=== PATIENT | male | born 1955 | race African-American/Black ===

== ENCOUNTER 2019-07-28 13:03 | Emergency (ER) | payer OTHER ==
[~2019-07-28] VITALS: Ht 185.4 cm; Wt 84.1 kg
[~2019-07-28 13:03] MED LIST: ALBU17AE27 IH; FLUT1DIS3 IH; HYDROCHLOROTHIAZIDE; NAPR375T PO
[2019-07-28] MEDS ORDERED: IPRAHFA IH (13:29)
[2019-07-28] MEDS ORDERED: HYDR25TA PO (13:29)
[2019-07-28] MEDS ORDERED: DEXAMETHASONE 4 MG TABLET PO ONE (15:00)
[2019-07-28] MEDS ORDERED: ALBUTEROL SULFATE HFA 90 MCG/PUFF 8 GM INHALER IH ONE (15:00)
[2019-07-28] MEDS ORDERED: ALBUTEROL SULFATE 2.5 MG/0.5 ML NEB SOLUTION NEB ONE (15:00)
[2019-07-28] MEDS ORDERED: BENZONATATE 100 MG CAPSULE PO ONE (15:00)
[2019-07-28] MEDS ORDERED: IPRATROPIUM BROMIDE 0.5 MG/2.5 ML NEB SOLUTION NEB ONE (15:00)
[2019-07-28] MEDS ORDERED: 0.9% SODIUM CHLORIDE 5 ML NEB SOLUTION NEB ONE (15:24)
[2019-07-28 16:13] VITALS: BP 145/82
== END 2019-07-28 16:15 | disposition home or self-care (01) ==
LOC: EMS 13:06
DX: J45.909 Unspecified asthma, uncomplicated (principal); I10 Essential (primary) hypertension; F17.210 Nicotine dependence, cigarettes, uncomplicated; Z88.6 Allergy status to analgesic agent
CPT/HCPCS: 71046; 94640; 99284; 99406; J8540; J3535

== ENCOUNTER 2023-07-27 03:57 | Emergency (ER) | payer MEDICARE, OTHER ==
[~2023-07-27] VITALS: Ht 185.4 cm; Wt 82.0 kg
[~2023-07-27 03:57] MED LIST changes: -FLUT1DIS3 IH; +HYDR25TA2 PO; -HYDROCHLOROTHIAZIDE; +IPRAHFA IH; -NAPR375T PO
[2023-07-27 04:04] VITALS: TEMP 97.9
[2023-07-27 05:05] VITALS: PULSE 101; RESP 21; O2SAT 97; O2SAT 98
[2023-07-27] MEDS: ALBUTEROL SULFATE 2.5 MG/0.5 ML NEB SOLUTION NEB ONE ×3 (05:05→08:21)
[2023-07-27] MEDS: IPRATROPIUM BROMIDE 0.5 MG/2.5 ML NEB SOLUTION NEB ONE ×2 (05:05→08:21)
[2023-07-27 05:15] VITALS: PULSE 105; RESP 18; O2SAT 99
[2023-07-27] MEDS: MethylPREDNISolone SOD SUCC 125 MG/2 ML VIAL IVP ONE (06:00)
[2023-07-27] MEDS: CloNIDine HCL 0.2 MG TABLET PO ONE (06:01)
[2023-07-27 06:55] LABS: COVID AG,FIA SOURCE NASAL SWAB
[2023-07-27 06:57] LABS: BASOPHILS % (AUTO) 0.7 % (0.0-2.0); EOSINOPHILS % (AUTO) 1.4 % (1.0-6.0); HEMATOCRIT 42.8 % (41-53); HEMOGLOBIN 14.7 g/dL (13.5-17.5); LYMPHOCYTES # (AUTO) 1.3 K/uL (1.0-4.8); LYMPHOCYTES % (AUTO) 15.1 % (22.0-44.0); MEAN CORPUSCULAR HEMOGLOBIN 30.2 pg (26.0-34.0); MEAN CORPUSCULAR HGB CONC 34.5 G/dL (31.0-37.0); MEAN CORPUSCULAR VOLUME 88 fL (80-100); MONOCYTES # (AUTO) 0.5 K/uL (0.1-1.0); MONOCYTES % (AUTO) 6.1 % (2.0-9.0); NEUTROPHILS # (AUTO) 6.7 K/uL (1.8-7.7); NEUTROPHILS % (AUTO) 76.7 % (40.0-70.0); PLATELET COUNT (AUTO) 200 K/uL (150-450); RED BLOOD CELL COUNT(AUTO) 4.88 MIL/uL (4.50-5.90); RED CELL DISTRIBUTION WIDTH 15.1 % (11.5-14.5); WHITE BLOOD COUNT (AUTO) 8.7 K/uL (4.5-11.0)
[2023-07-27 06:58] LABS: ANION GAP 12 mmol/L (8-16); CALCIUM, TOTAL 9.2 mg/dL (8.8-10.5); CARBON DIOXIDE 26 mmol/L (22-29); CHLORIDE 103 mmol/L (98-107); CREATININE 1.16 mg/dL (0.60-1.30); GLOMERULAR FILTR. RATE CALC > 60 mL/min (>60); GLUCOSE,RANDOM 139 mg/dL (70-110); POTASSIUM 3.8 mmol/L (3.5-5.1); SODIUM SERUM 141 mmol/L (136-145); UREA NITROGEN, BLOOD 15 mg/dL (7-18)
[2023-07-27 07:06] LABS: TROPONIN I-HIGH SENSITIVITY 56 ng/L (<76)
[2023-07-27 07:14] LABS: SARS-COV2 (COVID) ANTIGEN,FIA Negative (Negative)
[2023-07-27 07:23] LABS: ALANINE AMINOTRANSFERASE 54 U/L (12-78); ALBUMIN 3.5 g/dL (3.4-5.0); ALKALINE PHOSPHATASE 161 U/L (46-116); ASPARTATE AMINOTRANSFERASE 40 U/L (15-37); BILIRUBIN,TOTAL 0.6 mg/dL (0.1-1.0); CREATINE KINASE, TOTAL ONLY 180 U/L (39-308); TOTAL PROTEIN, SERUM 8.1 g/dL (6.4-8.2)
[2023-07-27 07:28] LABS: APPEARANCE,URINE CLEAR (CLEAR); BILIRUBIN,URINE NEGATIVE (NEGATIVE); COLOR,URINE LIGHT YELLOW (YELLOW); GLUCOSE, URINE (UA) TRACE mg/dL (NEGATIVE); KETONES,URINE NEGATIVE (NEGATIVE); LEUKOCYTE ESTERASE ,URINE NEGATIVE (NEGATIVE); NITRATE,URINE NEGATIVE (NEGATIVE); OCCULT BLOOD,URINE NEGATIVE (NEGATIVE); PH,URINE 6.5 (5.0-8.0); PH,URINE DRUG SCREEN 6.5 (5.0-8.0); PROTEIN,URINE TRACE mg/dL (NEGATIVE); SPECIFIC GRAVITIY, URINE 1.012 (1.003-1.030); UROBILINOGEN,URINE <=1.0 mg/dL (<=1.0)
[2023-07-27 07:29] LABS: B-TYPE NATRIURETIC PEPTIDE 326 pg/mL (0-100)
[2023-07-27 07:36] LABS: ALCOHOL, URINE DRUG SCREEN NEGATIVE (NEGATIVE); AMPHET/METH SCREEN,URINE NEGATIVE (NEGATIVE); BARBITURATE SCREEN, URINE NEGATIVE (NEGATIVE); BENZODIAZEPINES SCREEN,URINE NEGATIVE (NEGATIVE); CANNABINOID SCREEN,URINE NEGATIVE (NEGATIVE); COCAINE SCREEN,URINE POSITIVE (NEGATIVE); METHADONE SCREEN, URINE NEGATIVE (NEGATIVE); OPIATE SCREEN,URINE NEGATIVE (NEGATIVE); PHENCYCLIDINE SCREEN,URINE NEGATIVE (NEGATIVE)
[2023-07-27] MEDS: FUROSEMIDE 20 MG/2 ML VIAL IVP ONE (08:13)
[2023-07-27 08:21] VITALS: PULSE 78; RESP 18; O2SAT 93
[2023-07-27 08:36] VITALS: PULSE 91; RESP 21; O2SAT 99
[2023-07-27 09:08] LABS: BACTERIA,URINE None Seen /HPF (None Seen); RBC,URINE None Seen /HPF (0-2); SQUAMOUS EPITHELIAL CELL,UR None Seen /LPF (None Seen); WBC,URINE None Seen /HPF (0-5)
[2023-07-27] MEDS ORDERED: PRED-554 PO (09:27)
[2023-07-27] MEDS ORDERED: ALBU18HF12 IH (09:28)
[2023-07-27] MEDS ORDERED: FLUT1BLS12 IH (09:28)
[2023-07-27 09:38] VITALS: BP 148/92; PULSE 86; RESP 18
[2023-07-27] MEDS: ALBUTEROL SULFATE HFA 90 MCG/PUFF 8 GM INHALER IH ONE (09:43)
[2023-07-27] MEDS ORDERED: HYDR25TA2 PO (09:50)
== END 2023-07-27 10:07 | disposition home or self-care (01) ==
LOC: EMS 03:58
DX: R06.02 Shortness of breath (principal); J45.909 Unspecified asthma, uncomplicated; R07.89 Other chest pain; I16.0 Hypertensive urgency; I10 Essential (primary) hypertension; F17.210 Nicotine dependence, cigarettes, uncomplicated; F14.90 Cocaine use, unspecified, uncomplicated; Z88.6 Allergy status to analgesic agent; Z20.822 Contact with and (suspected) exposure to COVID-19
CPT/HCPCS: 99291; 96374; 71045; 96375; 87426; 80053; 81001; 82550; 83880; 84484; 85025; 36415; 94640; 93005; 80307; J1940; J2930; J3535; J7613

== ENCOUNTER 2023-08-09 11:49 | Emergency (ER) | payer MEDICARE, OTHER ==
[~2023-08-09] VITALS: Ht 185.4 cm; Wt 81.8 kg
[~2023-08-09 11:49] MED LIST changes: +ALBU18HF12 IH; +FLUT1BLS12 IH; +PRED-554 PO
[2023-08-09 11:52] VITALS: TEMP 98.1
[2023-08-09 12:51] LABS: ANION GAP 10 mmol/L (8-16); CALCIUM, TOTAL 9.4 mg/dL (8.8-10.5); CARBON DIOXIDE 26 mmol/L (22-29); CHLORIDE 104 mmol/L (98-107); CREATININE 1.08 mg/dL (0.60-1.30); GLOMERULAR FILTR. RATE CALC > 60 mL/min (>60); GLUCOSE,RANDOM 118 mg/dL (70-110); POTASSIUM 3.5 mmol/L (3.5-5.1); SODIUM SERUM 140 mmol/L (136-145); UREA NITROGEN, BLOOD 12 mg/dL (7-18)
[2023-08-09 12:53] LABS: BASOPHILS % (AUTO) 0.5 % (0.0-2.0); EOSINOPHILS % (AUTO) 0.9 % (1.0-6.0); HEMATOCRIT 41.1 % (41-53); LYMPHOCYTES # (AUTO) 1.4 K/uL (1.0-4.8); MEAN CORPUSCULAR HEMOGLOBIN 29.7 pg (26.0-34.0); MEAN CORPUSCULAR HGB CONC 34.1 G/dL (31.0-37.0); MEAN CORPUSCULAR VOLUME 87 fL (80-100); MONOCYTES # (AUTO) 0.7 K/uL (0.1-1.0); MONOCYTES % (AUTO) 6.9 % (2.0-9.0); NEUTROPHILS # (AUTO) 8.5 K/uL (1.8-7.7); NEUTROPHILS % (AUTO) 78.7 % (40.0-70.0); PLATELET COUNT (AUTO) 180 K/uL (150-450); RED BLOOD CELL COUNT(AUTO) 4.72 MIL/uL (4.50-5.90); RED CELL DISTRIBUTION WIDTH 15.7 % (11.5-14.5); WHITE BLOOD COUNT (AUTO) 10.8 K/uL (4.5-11.0)
[2023-08-09 12:58] LABS: TROPONIN I-HIGH SENSITIVITY 61 ng/L (<76)
[2023-08-09 13:03] LABS: B-TYPE NATRIURETIC PEPTIDE 280 pg/mL (0-100)
[2023-08-09 13:05] LABS: ALANINE AMINOTRANSFERASE 104 U/L (12-78); ALBUMIN 3.4 g/dL (3.4-5.0); ALKALINE PHOSPHATASE 162 U/L (46-116); ASPARTATE AMINOTRANSFERASE 70 U/L (15-37); BILIRUBIN,TOTAL 0.8 mg/dL (0.1-1.0); TOTAL PROTEIN, SERUM 7.4 g/dL (6.4-8.2)
[2023-08-09] MEDS ORDERED: ALBUTEROL SULFATE 2.5 MG/0.5 ML NEB SOLUTION NEB ONE (15:30)
[2023-08-09] MEDS ORDERED: IPRATROPIUM BROMIDE 0.5 MG/2.5 ML NEB SOLUTION NEB ONE (15:30)
[2023-08-09] MEDS ORDERED: PredniSONE 20 MG TABLET PO ONE (15:30)
[2023-08-09 15:55] VITALS: PULSE 89; PULSE 96; RESP 20; O2SAT 96
[2023-08-09 16:05] VITALS: PULSE 96; RESP 20; O2SAT 100
[2023-08-09] MEDS ORDERED: ALBU18HF12 IH (16:38)
[2023-08-09] MEDS ORDERED: AZIT250T9 PO (16:38)
[2023-08-09] MEDS ORDERED: PRED-554 PO (16:39)
[2023-08-09 17:00] VITALS: BP 155/98; PULSE 96; RESP 18
== END 2023-08-09 17:39 | disposition home or self-care (01) ==
LOC: EMS 11:49
DX: J44.9 Chronic obstructive pulmonary disease, unspecified (principal); F17.210 Nicotine dependence, cigarettes, uncomplicated; Z88.6 Allergy status to analgesic agent
CPT/HCPCS: 99285; 71045; 80053; 83880; 84484; 85025; 36415; 94640; 93005; J7512; J7613

== ENCOUNTER 2023-10-20 09:34 | Inpatient (IN) | payer MEDICARE, OTHER ==
[~2023-10-20] VITALS: Ht 185.4 cm; Wt 84.7 kg
[2023-10-20] VITALS (11 sets, daily range): BP systolic 161–181; BP diastolic 91–96; PULSE 86–97; RESP 16–22; TEMP 97.6–98.6; O2SAT 96–100
[~2023-10-20 09:34] MED LIST changes: -ALBU17AE27 IH; +FURO20 PO; +GUAIFDM PO; -HYDR25TA2 PO; -IPRAHFA IH; +LOSA-381 PO; +METO25XL PO; +SPIR-37 PO
[2023-10-20] MEDS: ALBUTEROL SULFATE 2.5 MG/0.5 ML NEB SOLUTION NEB ONE (10:04)
[2023-10-20] MEDS: IPRATROPIUM BROMIDE 0.5 MG/2.5 ML NEB SOLUTION NEB ONE (10:04)
[2023-10-20 10:34] LABS: COVID AG,FIA SOURCE NASAL SWAB
[2023-10-20 10:53] LABS: BASOPHILS % (AUTO) 0.7 % (0.0-2.0); EOSINOPHILS % (AUTO) 2.6 % (1.0-6.0); HEMATOCRIT 40.1 % (41-53); HEMOGLOBIN 13.7 g/dL (13.5-17.5); LYMPHOCYTES # (AUTO) 1.9 K/uL (1.0-4.8); LYMPHOCYTES % (AUTO) 24.7 % (22.0-44.0); MEAN CORPUSCULAR HEMOGLOBIN 30.3 pg (26.0-34.0); MEAN CORPUSCULAR HGB CONC 34.3 G/dL (31.0-37.0); MEAN CORPUSCULAR VOLUME 89 fL (80-100); MONOCYTES # (AUTO) 0.8 K/uL (0.1-1.0); MONOCYTES % (AUTO) 10.1 % (2.0-9.0); NEUTROPHILS # (AUTO) 4.8 K/uL (1.8-7.7); NEUTROPHILS % (AUTO) 61.9 % (40.0-70.0); PLATELET COUNT (AUTO) 199 K/uL (150-450); RED BLOOD CELL COUNT(AUTO) 4.52 MIL/uL (4.50-5.90); WHITE BLOOD COUNT (AUTO) 7.8 K/uL (4.5-11.0)
[2023-10-20 11:02] LABS: ANION GAP 12 mmol/L (8-16); CALCIUM, TOTAL 8.9 mg/dL (8.8-10.5); CARBON DIOXIDE 26 mmol/L (22-29); CHLORIDE 102 mmol/L (98-107); CREATININE 1.25 mg/dL (0.60-1.30); GLOMERULAR FILTR. RATE CALC > 60 mL/min (>60); GLUCOSE,RANDOM 124 mg/dL (70-110); POTASSIUM 3.8 mmol/L (3.5-5.1); SODIUM SERUM 140 mmol/L (136-145); UREA NITROGEN, BLOOD 17 mg/dL (7-18)
[2023-10-20 11:03] LABS: SARS-COV2 (COVID) ANTIGEN,FIA Negative (Negative)
[2023-10-20 11:04] LABS: INFLUENZA TYPE A NEGATIVE FOR TYPE A (NEGATIVE); INFLUENZA TYPE B NEGATIVE FOR TYPE B (NEGATIVE)
[2023-10-20 11:15] LABS: TROPONIN I-HIGH SENSITIVITY 118 ng/L (<76)
[2023-10-20 11:16] LABS: B-TYPE NATRIURETIC PEPTIDE 665 pg/mL (0-100)
[2023-10-20 11:27] LABS: ALANINE AMINOTRANSFERASE 92 U/L (12-78); ALBUMIN 3.1 g/dL (3.4-5.0); ALKALINE PHOSPHATASE 196 U/L (46-116); ASPARTATE AMINOTRANSFERASE 49 U/L (15-37); BILIRUBIN,TOTAL 0.8 mg/dL (0.1-1.0); CREATINE KINASE, TOTAL ONLY 118 U/L (39-308); TOTAL PROTEIN, SERUM 7.6 g/dL (6.4-8.2)
[2023-10-20] MEDS: FUROSEMIDE 20 MG/2 ML VIAL IVP ONE (11:37)
[2023-10-20 13:09] LABS: TROPONIN I-HIGH SENSITIVITY 104 ng/L (<76)
[2023-10-20] MEDS ORDERED: 0.9% SODIUM CHLORIDE 10 ML SYRINGE IVP PRN (13:30)
[2023-10-20] MEDS ORDERED: ONDANSETRON HCL 4 MG/2 ML VIAL IVP PRN (13:30)
[2023-10-20 13:49] LABS: ALCOHOL, URINE DRUG SCREEN NEGATIVE (NEGATIVE); AMPHET/METH SCREEN,URINE NEGATIVE (NEGATIVE); BARBITURATE SCREEN, URINE NEGATIVE (NEGATIVE); BENZODIAZEPINES SCREEN,URINE NEGATIVE (NEGATIVE); CANNABINOID SCREEN,URINE NEGATIVE (NEGATIVE); COCAINE SCREEN,URINE POSITIVE (NEGATIVE); METHADONE SCREEN, URINE NEGATIVE (NEGATIVE); OPIATE SCREEN,URINE NEGATIVE (NEGATIVE); PHENCYCLIDINE SCREEN,URINE NEGATIVE (NEGATIVE)
[2023-10-20] MEDS ORDERED: IPRATROPIUM BROMIDE 0.5 MG/2.5 ML NEB SOLUTION NEB PRN (14:00)
[2023-10-20] MEDS ORDERED: CefTRIAXone 1 GM/DEXTROSE 50 ML IV SCH (14:00)
[2023-10-20] MEDS ORDERED: ALBUTEROL SULFATE 2.5 MG/0.5 ML NEB SOLUTION NEB PRN (14:00)
[2023-10-20] MEDS ORDERED: ALBUTEROL SULFATE HFA 90 MCG/PUFF 8 GM INHALER IH PRN (14:00)
[2023-10-20] MEDS: LOSARTAN POTASSIUM 25 MG TABLET PO ONE (14:19)
[2023-10-20] MEDS: METOPROLOL SUCCINATE 25 MG ER TABLET PO ONE (14:20)
[2023-10-20] MEDS: ALBUTEROL SULFATE 2.5 MG/0.5 ML NEB SOLUTION NEB SCH (14:23)
[2023-10-20] MEDS: IPRATROPIUM BROMIDE 0.5 MG/2.5 ML NEB SOLUTION NEB SCH (14:23)
[2023-10-20] MEDS: BENZONATATE 100 MG CAPSULE PO SCH (15:52)
[2023-10-20] MEDS: MethylPREDNISolone SOD SUCC 125 MG/2 ML VIAL IVP SCH (18:00)
[2023-10-20] MEDS: FUROSEMIDE 20 MG/2 ML VIAL IVP SCH (20:50)
[2023-10-20] MEDS: FLUTICASONE/SALMETEROL 250-50 MCG/INH INHALER [60] IH SCH (20:51)
[2023-10-20] MEDS: GuaiFENesin SR 600 MG ER TABLET PO SCH (20:51)
[2023-10-21] VITALS (13 sets, daily range): BP systolic 143–163; BP diastolic 75–111; PULSE 86–101; RESP 17–20; TEMP 97.4–98.4; O2SAT 97–100
[2023-10-21 07:51] LABS: BASOPHILS % (AUTO) 0.3 % (0.0-2.0); EOSINOPHILS % (AUTO) 0 % (1.0-6.0); HEMATOCRIT 41.6 % (41-53); HEMOGLOBIN 14.3 g/dL (13.5-17.5); LYMPHOCYTES # (AUTO) 0.3 K/uL (1.0-4.8); LYMPHOCYTES % (AUTO) 3.3 % (22.0-44.0); MEAN CORPUSCULAR HEMOGLOBIN 30.8 pg (26.0-34.0); MEAN CORPUSCULAR HGB CONC 34.3 G/dL (31.0-37.0); MEAN CORPUSCULAR VOLUME 90 fL (80-100); MONOCYTES # (AUTO) 0.1 K/uL (0.1-1.0); MONOCYTES % (AUTO) 0.6 % (2.0-9.0); NEUTROPHILS # (AUTO) 9.9 K/uL (1.8-7.7); PLATELET COUNT (AUTO) 208 K/uL (150-450); RED BLOOD CELL COUNT(AUTO) 4.64 MIL/uL (4.50-5.90); RED CELL DISTRIBUTION WIDTH 16.1 % (11.5-14.5); WHITE BLOOD COUNT (AUTO) 10.3 K/uL (4.5-11.0)
[2023-10-21 08:16] LABS: NEUTROPHILS % (AUTO) 95.8 % (40.0-70.0)
[2023-10-21 08:18] LABS: ALANINE AMINOTRANSFERASE 77 U/L (12-78); ALBUMIN 3.1 g/dL (3.4-5.0); ALKALINE PHOSPHATASE 189 U/L (46-116); ANION GAP 10 mmol/L (8-16); ASPARTATE AMINOTRANSFERASE 36 U/L (15-37); CALCIUM, TOTAL 9.2 mg/dL (8.8-10.5); CARBON DIOXIDE 28 mmol/L (22-29); CHLORIDE 100 mmol/L (98-107); CREATININE 1.23 mg/dL (0.60-1.30); GLOMERULAR FILTR. RATE CALC > 60 mL/min (>60); GLUCOSE,RANDOM 208 mg/dL (70-110); POTASSIUM 4.2 mmol/L (3.5-5.1); SODIUM SERUM 138 mmol/L (136-145); TOTAL PROTEIN, SERUM 7.6 g/dL (6.4-8.2); UREA NITROGEN, BLOOD 20 mg/dL (7-18)
[2023-10-21] MEDS: ACETAMINOPHEN 325 MG TABLET PO PRN ×2 (08:26→17:21)
[2023-10-21] MEDS: LOSARTAN POTASSIUM 25 MG TABLET PO SCH (08:26)
[2023-10-21] MEDS: METOPROLOL SUCCINATE 25 MG ER TABLET PO SCH (08:27)
[2023-10-21] MEDS: SPIRONOLACTONE 25 MG TABLET PO SCH (08:27)
[2023-10-21] MEDS: HydrALAZINE HCL 20 MG/ML VIAL IVP PRN (12:07)
[2023-10-21] MEDS: TraMADol HCL 50 MG TABLET PO PRN (12:07)
[2023-10-21] MEDS: LIDOCAINE 5% TRANSDERMAL PATCH TD SCH (18:29)
[2023-10-21] MEDS: -LIDODERM PATCH NOTE- MISC SCH (20:48)
[2023-10-22] VITALS (11 sets, daily range): BP systolic 139–161; BP diastolic 73–106; PULSE 91–102; RESP 17–20; TEMP 97.7–98.8; O2SAT 98–100
[2023-10-22 06:27] LABS: EOSINOPHILS % (AUTO) 0 % (1.0-6.0); HEMATOCRIT 37.4 % (41-53); HEMOGLOBIN 12.6 g/dL (13.5-17.5); LYMPHOCYTES # (AUTO) 0.4 K/uL (1.0-4.8); LYMPHOCYTES % (AUTO) 1.3 % (22.0-44.0); MEAN CORPUSCULAR HEMOGLOBIN 29.9 pg (26.0-34.0); MEAN CORPUSCULAR HGB CONC 33.6 G/dL (31.0-37.0); MEAN CORPUSCULAR VOLUME 89 fL (80-100); MONOCYTES # (AUTO) 0.7 K/uL (0.1-1.0); MONOCYTES % (AUTO) 2.3 % (2.0-9.0); NEUTROPHILS # (AUTO) 27.3 K/uL (1.8-7.7); PLATELET COUNT (AUTO) 194 K/uL (150-450); WHITE BLOOD COUNT (AUTO) 28.3 K/uL (4.5-11.0)
[2023-10-22 06:45] LABS: NEUTROPHILS % (AUTO) 96.4 % (40.0-70.0)
[2023-10-22 07:04] LABS: ANION GAP 8 mmol/L (8-16); CALCIUM, TOTAL 9.1 mg/dL (8.8-10.5); CARBON DIOXIDE 28 mmol/L (22-29); CHLORIDE 101 mmol/L (98-107); CREATININE 1.27 mg/dL (0.60-1.30); GLOMERULAR FILTR. RATE CALC > 60 mL/min (>60); GLUCOSE,RANDOM 196 mg/dL (70-110); POTASSIUM 3.7 mmol/L (3.5-5.1); SODIUM SERUM 137 mmol/L (136-145); UREA NITROGEN, BLOOD 29 mg/dL (7-18)
[2023-10-22] MEDS: FUROSEMIDE 20 MG TABLET PO SCH (09:04)
[2023-10-22] MEDS: METOPROLOL SUCCINATE 25 MG ER TABLET PO SCH (09:05)
[2023-10-22] MEDS ORDERED: LOSA-417 PO (12:44)
[2023-10-22] MEDS ORDERED: FURO20 PO (12:44)
[2023-10-22] MEDS ORDERED: METO25XL PO (12:44)
[2023-10-22] MEDS ORDERED: SPIR-37 PO (12:44)
== END 2023-10-22 14:30 | disposition home or self-care (01) | DRG 291 ==
LOC: EMS 09:34 → 5S 12:27
PROVIDERS: ADMIT Internal Medicine; ATTEND Internal Medicine
DX: I11.0 Hypertensive heart disease with heart failure (principal); I50.23 Acute on chronic systolic (congestive) heart failure; J44.1 Chronic obstructive pulmonary disease with (acute) exacerbation; I16.0 Hypertensive urgency; F14.90 Cocaine use, unspecified, uncomplicated; I42.9 Cardiomyopathy, unspecified; Z20.822 Contact with and (suspected) exposure to COVID-19; F17.210 Nicotine dependence, cigarettes, uncomplicated; D72.829 Elevated white blood cell count, unspecified; Z88.6 Allergy status to analgesic agent; Z91.199 Patient's noncompliance with other medical treatment and regimen due to unspecified reason; Z79.899 Other long term (current) drug therapy
CPT/HCPCS: 71045; 80048; 80053; 80307; 82550; 83880; 84484; 85025; 87804; 93005; 94640; 99285; G0378; G0480; J0360; J0696; J1940; J2930; J3535; 36415-L1; 36415-TC; J7613

== ENCOUNTER 2024-02-03 13:04 | Emergency (ER) | payer MEDICARE, OTHER ==
[~2024-02-03] VITALS: Ht 175.3 cm; Wt 84.1 kg
[~2024-02-03 13:04] MED LIST changes: -LOSA-381 PO; +LOSA-417 PO; -PRED-554 PO
[2024-02-03 13:35] VITALS: BP 166/115; TEMP 98.2
[2024-02-03 14:17] LABS: EOSINOPHILS % (AUTO) 1.3 % (1.0-6.0); HEMATOCRIT 40.6 % (41-53); HEMOGLOBIN 13.6 g/dL (13.5-17.5); LYMPHOCYTES # (AUTO) 1.5 K/uL (1.0-4.8); LYMPHOCYTES % (AUTO) 16.9 % (22.0-44.0); MEAN CORPUSCULAR HGB CONC 33.4 G/dL (31.0-37.0); MEAN CORPUSCULAR VOLUME 90 fL (80-100); MONOCYTES % (AUTO) 11.2 % (2.0-9.0); NEUTROPHILS # (AUTO) 6.1 K/uL (1.8-7.7); NEUTROPHILS % (AUTO) 69.6 % (40.0-70.0); PLATELET COUNT (AUTO) 191 K/uL (150-450); RED BLOOD CELL COUNT(AUTO) 4.52 MIL/uL (4.50-5.90); RED CELL DISTRIBUTION WIDTH 15.3 % (11.5-14.5); WHITE BLOOD COUNT (AUTO) 8.8 K/uL (4.5-11.0)
[2024-02-03 14:26] LABS: ANION GAP 6 mmol/L (8-16); CALCIUM, TOTAL 9.2 mg/dL (8.8-10.5); CARBON DIOXIDE 30 mmol/L (22-29); CHLORIDE 101 mmol/L (98-107); CREATININE 1.23 mg/dL (0.60-1.30); GLOMERULAR FILTR. RATE CALC > 60 mL/min (>60); GLUCOSE,RANDOM 97 mg/dL (70-110); POTASSIUM 3.6 mmol/L (3.5-5.1); SODIUM SERUM 137 mmol/L (136-145); UREA NITROGEN, BLOOD 15 mg/dL (7-18)
[2024-02-03 14:33] LABS: ALANINE AMINOTRANSFERASE 36 U/L (12-78); ALBUMIN 3.2 g/dL (3.4-5.0); ALKALINE PHOSPHATASE 145 U/L (46-116); ASPARTATE AMINOTRANSFERASE 30 U/L (15-37); B-TYPE NATRIURETIC PEPTIDE 1050 pg/mL (0-100); BILIRUBIN,TOTAL 1.2 mg/dL (0.1-1.0); TOTAL PROTEIN, SERUM 7.5 g/dL (6.4-8.2)
[2024-02-03 14:37] LABS: TROPONIN I-HIGH SENSITIVITY 96 ng/L (<76)
[2024-02-03] MEDS: ALBUTEROL SULFATE 2.5 MG/0.5 ML NEB SOLUTION NEB ONE (16:17)
[2024-02-03 16:18] VITALS: PULSE 71; RESP 20; O2SAT 100
[2024-02-03 16:22] VITALS: PULSE 71; RESP 20; O2SAT 100
[2024-02-03 16:36] VITALS: PULSE 100; RESP 20; O2SAT 100
== END 2024-02-03 17:23 | disposition home or self-care (01) ==
LOC: EMS 13:04
DX: J44.9 Chronic obstructive pulmonary disease, unspecified (principal); F10.20 Alcohol dependence, uncomplicated; I10 Essential (primary) hypertension; F17.210 Nicotine dependence, cigarettes, uncomplicated; F14.90 Cocaine use, unspecified, uncomplicated; Z88.6 Allergy status to analgesic agent; Y90.9 Presence of alcohol in blood, level not specified
CPT/HCPCS: 71045; 80048; 80076; 83880; 84484; 85025; 93005; 94640; 99285; 36415-L1; 36415-TC; J7613

== ENCOUNTER 2024-03-24 02:46 | Inpatient (IN) | payer MEDICARE, OTHER ==
[~2024-03-24] VITALS: Ht 177.8 cm; Wt 82.0 kg
[2024-03-24] VITALS (7 sets, daily range): BP systolic 136–143; BP diastolic 74–90; PULSE 64–94; RESP 18–20; TEMP 97.7–98.6; O2SAT 96–100
[~2024-03-24 02:46] MED LIST changes: +FURO-151 PO; -FURO20 PO; -GUAIFDM PO
[2024-03-24 03:50] LABS: BASOPHILS % (AUTO) 0.6 % (0.0-2.0); HEMATOCRIT 45.9 % (41-53); HEMOGLOBIN 15.5 g/dL (13.5-17.5); LYMPHOCYTES # (AUTO) 1.7 K/uL (1.0-4.8); MEAN CORPUSCULAR HEMOGLOBIN 31.2 pg (26.0-34.0); MEAN CORPUSCULAR HGB CONC 33.7 G/dL (31.0-37.0); MEAN CORPUSCULAR VOLUME 93 fL (80-100); MONOCYTES # (AUTO) 0.6 K/uL (0.1-1.0); MONOCYTES % (AUTO) 9.3 % (2.0-9.0); NEUTROPHILS % (AUTO) 60.1 % (40.0-70.0); PLATELET COUNT (AUTO) 181 K/uL (150-450); RED BLOOD CELL COUNT(AUTO) 4.96 MIL/uL (4.50-5.90); RED CELL DISTRIBUTION WIDTH 15.6 % (11.5-14.5); WHITE BLOOD COUNT (AUTO) 6.7 K/uL (4.5-11.0)
[2024-03-24 03:59] LABS: CALCIUM, TOTAL 9.2 mg/dL (8.8-10.5); CREATININE 1.68 mg/dL (0.60-1.30); POTASSIUM 4.3 mmol/L (3.5-5.1)
[2024-03-24] MEDS: IPRATROPIUM BROMIDE 0.5 MG/2.5 ML NEB SOLUTION NEB ONE (04:09)
[2024-03-24] MEDS: ALBUTEROL SULFATE 2.5 MG/0.5 ML NEB SOLUTION NEB ONE (04:09)
[2024-03-24 04:12] LABS: TROPONIN I-HIGH SENSITIVITY 865 ng/L (<76)
[2024-03-24 05:09] LABS: INR 1.1 (0.9-1.1); PROTHROMBIN TIME 11.5 SEC (9.4-11.6)
[2024-03-24] MEDS: PredniSONE 20 MG TABLET PO ONE (05:22)
[2024-03-24] MEDS: FUROSEMIDE 20 MG/2 ML VIAL IVP ONE (05:22)
[2024-03-24 06:25] LABS: TROPONIN I-HIGH SENSITIVITY 747 ng/L (<76)
[2024-03-24] MEDS: ALBUTEROL SULFATE HFA 90 MCG/PUFF 8 GM INHALER IH ONE (06:28)
[2024-03-24] MEDS: FUROSEMIDE 40 MG/4 ML VIAL IVP SCH (08:16)
[2024-03-24] MEDS: LOSARTAN POTASSIUM 25 MG TABLET PO SCH (08:17)
[2024-03-24] MEDS: SPIRONOLACTONE 25 MG TABLET PO SCH (08:17)
[2024-03-24] MEDS: METOPROLOL SUCCINATE 25 MG ER TABLET PO SCH (09:58)
[2024-03-24] MEDS: OxyCODONE HCL/ACETAMINOPHEN 5-325 MG TABLET PO PRN (12:18)
[2024-03-24] MEDS: FLUTICASONE/SALMETEROL 250-50 MCG/INH INHALER [60] IH SCH (12:19)
[2024-03-24] MEDS ORDERED: MAGNESIUM HYDROXIDE SUSPENSION 30 ML UDCUP PO PRN (14:15)
[2024-03-24] MEDS ORDERED: ONDANSETRON HCL 4 MG/2 ML VIAL IVP PRN (14:15)
[2024-03-24] MEDS ORDERED: ZOLPIDEM TARTRATE 5 MG TABLET PO PRN (14:15)
[2024-03-24] MEDS ORDERED: BISACODYL 10 MG RECTAL RECTAL SUPPOSITORY PR PRN (14:15)
[2024-03-24] MEDS: PNEUMOCOCCAL VACCINE POLYVALENT 0.5 ML SYRINGE [PPSV23] IM. ONE (15:40)
[2024-03-24] MEDS: HEPARIN SODIUM,PORCINE 5,000 UNITS/ML VIAL SQ SCH (15:41)
[2024-03-24] MEDS: NICOTINE 21 MG/24 HOUR PATCH TD SCH (15:41)
[2024-03-24] MEDS: DOCUSATE SODIUM 100 MG CAPSULE PO SCH (21:24)
[2024-03-25 04:00] VITALS: BP 135/88; PULSE 80; RESP 18; TEMP 97.7; O2SAT 98
[2024-03-25 07:42] LABS: BASOPHILS % (AUTO) 0.3 % (0.0-2.0); EOSINOPHILS % (AUTO) 0.5 % (1.0-6.0); HEMATOCRIT 41.1 % (41-53); LYMPHOCYTES # (AUTO) 1.7 K/uL (1.0-4.8); LYMPHOCYTES % (AUTO) 13.9 % (22.0-44.0); MEAN CORPUSCULAR HEMOGLOBIN 31.3 pg (26.0-34.0); MEAN CORPUSCULAR HGB CONC 34.2 G/dL (31.0-37.0); MEAN CORPUSCULAR VOLUME 92 fL (80-100); MONOCYTES # (AUTO) 0.8 K/uL (0.1-1.0); MONOCYTES % (AUTO) 6.5 % (2.0-9.0); NEUTROPHILS # (AUTO) 9.9 K/uL (1.8-7.7); NEUTROPHILS % (AUTO) 78.8 % (40.0-70.0); PLATELET COUNT (AUTO) 187 K/uL (150-450); RED BLOOD CELL COUNT(AUTO) 4.48 MIL/uL (4.50-5.90); RED CELL DISTRIBUTION WIDTH 15.8 % (11.5-14.5); WHITE BLOOD COUNT (AUTO) 12.5 K/uL (4.5-11.0)
[2024-03-25 07:48] LABS: CREATININE 1.56 mg/dL (0.60-1.30); POTASSIUM 3.7 mmol/L (3.5-5.1)
[2024-03-25 08:15] VITALS: BP 153/85; PULSE 82; RESP 18; TEMP 98.1; O2SAT 97
[2024-03-25] MEDS: PANTOPRAZOLE SODIUM 40 MG DR TABLET PO SCH (09:33)
[2024-03-25] MEDS: ACETAMINOPHEN 325 MG TABLET PO PRN (09:42)
[2024-03-25] MEDS ORDERED: ALBUTEROL SULFATE 2.5 MG/0.5 ML NEB SOLUTION NEB PRN (12:30)
[2024-03-25 12:37] VITALS: BP 137/90; PULSE 83; RESP 18; TEMP 97.6; O2SAT 99
[2024-03-25] MEDS ORDERED: ALBU18HF12 IH (14:00)
[2024-03-25] MEDS ORDERED: FLUT1BLS12 IH (14:00)
[2024-03-25] MEDS ORDERED: METO25XL PO (14:00)
[2024-03-25] MEDS ORDERED: FURO-151 PO (14:00)
[2024-03-25] MEDS ORDERED: SPIR-37 PO (14:00)
[2024-03-25] MEDS ORDERED: LOSA-382 PO (14:00)
[2024-03-25 15:31] LABS: PH,URINE DRUG SCREEN 6.5 (5.0-8.0)
[2024-03-25 15:39] LABS: ALCOHOL, URINE DRUG SCREEN NEGATIVE (NEGATIVE); AMPHET/METH SCREEN,URINE NEGATIVE (NEGATIVE); BARBITURATE SCREEN, URINE NEGATIVE (NEGATIVE); BENZODIAZEPINES SCREEN,URINE NEGATIVE (NEGATIVE); CANNABINOID SCREEN,URINE NEGATIVE (NEGATIVE); COCAINE SCREEN,URINE POSITIVE (NEGATIVE); METHADONE SCREEN, URINE NEGATIVE (NEGATIVE); OPIATE SCREEN,URINE NEGATIVE (NEGATIVE); PHENCYCLIDINE SCREEN,URINE NEGATIVE (NEGATIVE)
[2024-03-26] MEDS ORDERED: LOSARTAN POTASSIUM 50 MG TABLET PO SCH (09:00)
[2024-03-26] MEDS ORDERED: METOPROLOL SUCCINATE 25 MG ER TABLET PO SCH (09:00)
== END 2024-03-25 14:55 | disposition home or self-care (01) | DRG 291 ==
LOC: EMS 02:46 → EDH 06:23 → 5S 10:25
PROVIDERS: ADMIT Internal Medicine; ATTEND Internal Medicine
DX: I13.0 Hypertensive heart and chronic kidney disease with heart failure and stage 1 through stage 4 chronic kidney disease, or unspecified chronic kidney disease (principal); I50.23 Acute on chronic systolic (congestive) heart failure; I42.7 Cardiomyopathy due to drug and external agent; F17.200 Nicotine dependence, unspecified, uncomplicated; N18.9 Chronic kidney disease, unspecified; F14.90 Cocaine use, unspecified, uncomplicated; E78.5 Hyperlipidemia, unspecified; Z91.148 Patient's other noncompliance with medication regimen for other reason; Z79.899 Other long term (current) drug therapy; Z88.6 Allergy status to analgesic agent; J44.9 Chronic obstructive pulmonary disease, unspecified
CPT/HCPCS: 71045; 80048; 80307; 83880; 84484; 85025; 85610; 85730; 90732; 93005; 93306; 94640; 99285; G0378; J1644; J1940; J3535; 36415-L1; 36415-TC; J7613